=== PATIENT | male | born 1990 | race Caucasian/White ===

== ENCOUNTER 2019-03-09 17:49 | Emergency (ER) | payer OTHER ==
[~2019-03-09] VITALS: Ht 182.9 cm; Wt 83.9 kg
[2019-03-09 18:15] VITALS: BP 133/76
--- NOTE | 2019-03-09 19:31 | RAD ---
Exam: Thoracic spine radiographs INDICATION: Mid back pain. TECHNIQUE: Frontal and lateral views of the thoracic spine with swimmer's view of the cervicothoracic junction. Comparisons: None FINDINGS: Vertebral body heights and alignment are well-maintained. No significant spondylotic change in the thoracic spine. Visualized paraspinal soft tissues are unremarkable. IMPRESSION: Unremarkable thoracic spine radiographs. Electronically signed by: Lior Solomon MD (03/09/2019 7:28 PM) [facility]
[2019-03-09] MEDS ORDERED: CYCL10TA2 PO (19:49)
[2019-03-09] MEDS ORDERED: NAPR-514 PO (19:49)
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
== END 2019-03-09 20:00 | disposition home or self-care (01) ==
LOC: ER 17:49
DX: S23.3XXA Sprain of ligaments of thoracic spine, initial encounter (principal); X50.0XXA Overexertion from strenuous movement or load, initial encounter; Y93.89 Activity, other specified; Y92.89 Other specified places as the place of occurrence of the external cause; Y99.0 Civilian activity done for income or pay
CPT/HCPCS: 72072; 99284